=== PATIENT | male | born 1955 | race Caucasian/White ===

== ENCOUNTER 2016-12-19 07:01 | Outpatient (CLI) | payer OTHER ==
[~2016-12-19 07:01] MED LIST: ASPI-524 PO; BENA10TA PO
[2016-12-19 09:44] LABS: BASOPHILS % (AUTO) 0.5 % (0.0-2.0); EOSINOPHILS # (AUTO) 0.2 K/uL (0.0-0.4); HEMOGLOBIN 15.4 g/dL (14.0-18.0); LYMPHOCYTES # (AUTO) 1.9 K/uL (1.0-5.5); LYMPHOCYTES % (AUTO) 35.4 % (20.5-51.5); MEAN CORPUSCULAR HEMOGLOBIN 30 pg (27-31); MEAN CORPUSCULAR HGB CONC 33 % (32-36); MEAN CORPUSCULAR VOLUME 92 fL (79.0-98.0); MONOCYTES # (AUTO) 0.5 K/uL (0.0-1.0); MONOCYTES % (AUTO) 9.3 % (1.7-9.3); NEUTROPHILS # (AUTO) 2.8 K/uL (1.8-7.7); NEUTROPHILS % (AUTO) 51.8 % (40.0-70.0); PLATELET COUNT (AUTO) 295 K/uL (130-430); RED BLOOD CELL COUNT(AUTO) 5.13 MIL/uL (4.2-6.2); RED CELL DISTRIBUTION WIDTH 12.1 % (9.0-15.0); WHITE BLOOD COUNT (AUTO) 5.4 K/uL (4.8-10.8)
[2016-12-19 09:59] LABS: ALBUMIN 4.2 g/dL (3.4-4.8); CALCIUM 9.8 mg/dL (8.4-11.0); CREATININE 1.1 mg/dL (0.55-1.30); POTASSIUM 4.6 mmol/L (3.5-5.1); TOTAL BILIRUBIN 0.7 mg/dL (0.0-1.0); TOTAL PROTEIN, SERUM 7.3 g/dL (6.4-8.3); URIC ACID 6.3 mg/dL (2.4-7.0)
[2016-12-19 10:10] LABS: BILIRUBIN,URINE NEGATIVE (NEGATIVE); CLARITY/URINE CLEAR (CLEAR); COLOR,URINE YELLOW (YELLOW); GLUCOSE,URINE NEGATIVE (NEGATIVE); KETONES,URINE NEGATIVE (NEGATIVE); LEUKOCYTE ESTERASE ,URINE NEGATIVE (NEGATIVE); NITRITE, URINE NEGATIVE (NEGATIVE); PROTEIN URINE NEGATIVE (NEGATIVE); UROBILINOGEN,URINE 0.2 (0.2-1.0)
[2016-12-19 10:15] LABS: BLOOD, URINE TRACE (NEGATIVE)
[2016-12-19 10:23] LABS: BACTERIA,URINE None Seen /HPF (None Seen); MUCUS,URINE 1+ /LPF (None Seen); RBC,URINE 0-3 /HPF (0-3); WBC,URINE 0-3 /HPF (0-3)
[2016-12-19 10:35] LABS: THYROID STIMULATING HORMONE 1.22 uIu/mL (0.34-4.82)
[2016-12-23 16:15] LABS: % FREE PSA 20.5 % (.); FREE PSA 0.45 ng/mL; HEMOGLOBIN A1C 5.6 % (4.8-5.6); PROSTATE SPECIFIC AG TOTAL 2.2 ng/mL (0.0-4.0)
== END 2016-12-19 20:15 | disposition home or self-care (01) ==
LOC: SLB 07:01
DX: Z00.01 Encounter for general adult medical examination with abnormal findings (principal); R79.89 Other specified abnormal findings of blood chemistry
CPT/HCPCS: 36415; 80053; 80061; 81000-TC; 82306; 82607; 83036; 83540-TC; 84153; 84443-TC; 84550-TC; 85025

== ENCOUNTER 2017-12-30 07:03 | Outpatient (CLI) | payer OTHER ==
[2017-12-30 07:54] LABS: BASOPHILS # (AUTO) 0.1 K/uL (0.0-0.2); BASOPHILS % (AUTO) 1.8 % (0.0-2.0); EOSINOPHILS # (AUTO) 0.2 K/uL (0.0-0.4); EOSINOPHILS % (AUTO) 3.3 % (0.0-4.0); HEMATOCRIT 45.5 % (36-54); HEMOGLOBIN 15.2 g/dL (14.0-18.0); LYMPHOCYTES # (AUTO) 1.5 K/uL (1.0-5.5); LYMPHOCYTES % (AUTO) 31.8 % (20.5-51.5); MEAN CORPUSCULAR HEMOGLOBIN 31 pg (27-31); MEAN CORPUSCULAR HGB CONC 33 % (32-36); MEAN CORPUSCULAR VOLUME 92 fL (79.0-98.0); MONOCYTES # (AUTO) 0.4 K/uL (0.0-1.0); MONOCYTES % (AUTO) 8.8 % (1.7-9.3); NEUTROPHILS # (AUTO) 2.5 K/uL (1.8-7.7); NEUTROPHILS % (AUTO) 54.3 % (40.0-70.0); PLATELET COUNT (AUTO) 284 K/uL (130-430); RED BLOOD CELL COUNT(AUTO) 4.93 MIL/uL (4.2-6.2); RED CELL DISTRIBUTION WIDTH 12.4 % (9.0-15.0); WHITE BLOOD COUNT (AUTO) 4.7 K/uL (4.8-10.8)
[2017-12-30 08:10] LABS: BILIRUBIN,URINE NEGATIVE (NEGATIVE); BLOOD, URINE 1+ (NEGATIVE); CLARITY/URINE CLEAR (CLEAR); COLOR,URINE YELLOW (YELLOW); GLUCOSE,URINE NEGATIVE (NEGATIVE); KETONES,URINE NEGATIVE (NEGATIVE); LEUKOCYTE ESTERASE ,URINE NEGATIVE (NEGATIVE); NITRITE, URINE NEGATIVE (NEGATIVE); PROTEIN URINE NEGATIVE (NEGATIVE); UROBILINOGEN,URINE 0.2 (0.2-1.0)
[2017-12-30 08:19] LABS: CREATININE 1.06 mg/dL (0.55-1.30); POTASSIUM 4.4 mmol/L (3.5-5.1)
[2017-12-30 08:22] LABS: BACTERIA,URINE FEW /HPF (None Seen); MUCUS,URINE None Seen /LPF (None Seen); RBC,URINE 0-3 /HPF (0-3); WBC,URINE NONE SEEN /HPF (0-3)
[2017-12-30 08:32] LABS: TOTAL IRON BIND. CAPACITY 253 ug/dL (250-450)
[2017-12-30 08:33] LABS: ALBUMIN 4.2 g/dL (3.4-4.8); THYROID STIMULATING HORMONE 1.93 uIu/mL (0.36-3.74); TOTAL BILIRUBIN 0.8 mg/dL (0.0-1.0)
[2017-12-31 08:06] LABS: PROSTATE SPECIFIC AG 2.4 ng/mL (0.0-4.0)
[2017-12-31 10:06] LABS: HEMOGLOBIN A1C 5.7 % (4.8-5.6)
== END 2017-12-30 20:00 | disposition home or self-care (01) ==
LOC: SLB 07:03 → EDSTATUS 01-01 11:15
DX: Z00.01 Encounter for general adult medical examination with abnormal findings (principal); R73.01 Impaired fasting glucose; N52.9 Male erectile dysfunction, unspecified; Z12.5 Encounter for screening for malignant neoplasm of prostate
CPT/HCPCS: 36415; 80053; 80061; 81000-TC; 82306; 82607; 83036; 83519; 83540-TC; 83550-TC; 83735-TC; 84153; 84443-TC; 85025

== ENCOUNTER 2018-06-18 06:55 | Outpatient (CLI) | payer OTHER, MEDICARE ==
[2018-06-18 07:30] LABS: EOSINOPHILS # (AUTO) 0.2 K/uL (0.0-0.4); LYMPHOCYTES # (AUTO) 1.8 K/uL (1.0-5.5); MEAN CORPUSCULAR HEMOGLOBIN 31 pg (27-31); MEAN CORPUSCULAR HGB CONC 33 % (32-36); MEAN CORPUSCULAR VOLUME 92 fL (79.0-98.0); NEUTROPHILS # (AUTO) 2.8 K/uL (1.8-7.7); WHITE BLOOD COUNT (AUTO) 5.3 K/uL (4.8-10.8)
[2018-06-18 07:32] LABS: BILIRUBIN,URINE NEGATIVE (NEGATIVE); BLOOD, URINE 1+ (NEGATIVE); CLARITY/URINE CLEAR (CLEAR); COLOR,URINE YELLOW (YELLOW); GLUCOSE,URINE NEGATIVE (NEGATIVE); KETONES,URINE NEGATIVE (NEGATIVE); LEUKOCYTE ESTERASE ,URINE NEGATIVE (NEGATIVE); NITRITE, URINE NEGATIVE (NEGATIVE); PROTEIN URINE NEGATIVE (NEGATIVE); UROBILINOGEN,URINE 0.2 (0.2-1.0)
[2018-06-18 07:45] LABS: HEMATOCRIT 45.5 % (36-54); HEMOGLOBIN 15.1 g/dL (14.0-18.0); LYMPHOCYTES % (AUTO) 33.6 % (20.5-51.5); NEUTROPHILS % (AUTO) 53.2 % (40.0-70.0); PLATELET COUNT (AUTO) 264 K/uL (130-430); RED BLOOD CELL COUNT(AUTO) 4.95 MIL/uL (4.2-6.2); RED CELL DISTRIBUTION WIDTH 12.3 % (9.0-15.0)
[2018-06-18 07:46] LABS: BASOPHILS % (AUTO) 0.6 % (0.0-2.0); EOSINOPHILS % (AUTO) 3.6 % (0.0-4.0); MONOCYTES # (AUTO) 0.5 K/uL (0.0-1.0)
[2018-06-18 07:52] LABS: ALBUMIN 3.8 g/dL (3.4-4.8); CALCIUM 9.4 mg/dL (8.4-11.0); CREATININE 1.12 mg/dL (0.55-1.30); POTASSIUM 4.6 mmol/L (3.5-5.1); THYROID STIMULATING HORMONE 1.67 uIu/mL (0.34-4.82); TOTAL BILIRUBIN 0.7 mg/dL (0.0-1.0)
[2018-06-18 08:03] LABS: BACTERIA,URINE None Seen /HPF (None Seen); MUCUS,URINE 1+ /LPF (None Seen); RBC,URINE 0-3 /HPF (0-3); WBC,URINE 0-3 /HPF (0-3)
== END 2018-06-18 19:29 | disposition home or self-care (01) ==
LOC: SLB 06:55
DX: Z12.5 Encounter for screening for malignant neoplasm of prostate (principal); E55.9 Vitamin D deficiency, unspecified; N52.9 Male erectile dysfunction, unspecified; N10 Acute pyelonephritis; R53.83 Other fatigue
CPT/HCPCS: 36415; 80053; 80061; 81000; 82306; 82607; 84443; 85025; G0103

== ENCOUNTER 2018-07-07 06:57 | Outpatient (CLI) | payer OTHER, MEDICARE | END 2018-07-07 21:28 | disposition home or self-care (01) | LOC: SLB 06:57 | DX: R73.01 Impaired fasting glucose (principal) | CPT/HCPCS: 36415; 83036 ==

== ENCOUNTER 2019-02-09 06:54 | Outpatient (CLI) | payer OTHER, MEDICARE ==
[2019-02-09 07:32] LABS: BASOPHILS % (AUTO) 0.7 % (0.0-2.0); EOSINOPHILS # (AUTO) 0.2 K/uL (0.0-0.4); EOSINOPHILS % (AUTO) 3.8 % (0.0-4.0); HEMATOCRIT 45.5 % (36-54); HEMOGLOBIN 15.6 g/dL (14.0-18.0); LYMPHOCYTES # (AUTO) 1.9 K/uL (1.0-5.5); LYMPHOCYTES % (AUTO) 35.4 % (20.5-51.5); MEAN CORPUSCULAR HEMOGLOBIN 32 pg (27-31); MEAN CORPUSCULAR HGB CONC 34 % (32-36); MEAN CORPUSCULAR VOLUME 92 fL (79.0-98.0); MONOCYTES # (AUTO) 0.5 K/uL (0.0-1.0); NEUTROPHILS # (AUTO) 2.7 K/uL (1.8-7.7); NEUTROPHILS % (AUTO) 50.1 % (40.0-70.0); PLATELET COUNT (AUTO) 239 K/uL (130-430); RED BLOOD CELL COUNT(AUTO) 4.92 MIL/uL (4.2-6.2); RED CELL DISTRIBUTION WIDTH 13.2 % (9.0-15.0); WHITE BLOOD COUNT (AUTO) 5.3 K/uL (4.8-10.8)
[2019-02-09 07:32] LABS: BILIRUBIN,URINE NEGATIVE (NEGATIVE); BLOOD, URINE 1+ (NEGATIVE); CLARITY/URINE CLEAR (CLEAR); COLOR,URINE YELLOW (YELLOW); GLUCOSE,URINE NEGATIVE (NEGATIVE); KETONES,URINE NEGATIVE (NEGATIVE); LEUKOCYTE ESTERASE ,URINE NEGATIVE (NEGATIVE); NITRITE, URINE NEGATIVE (NEGATIVE); PROTEIN URINE NEGATIVE (NEGATIVE); UROBILINOGEN,URINE 0.2 (0.2-1.0)
[2019-02-09 07:40] LABS: BACTERIA,URINE FEW /HPF (None Seen); MUCUS,URINE None Seen /LPF (None Seen); RBC,URINE 0-3 /HPF (0-3); WBC,URINE 0-3 /HPF (0-3)
[2019-02-09 07:59] LABS: ALBUMIN 3.8 g/dL (3.4-4.8); CREATININE 1.12 mg/dL (0.55-1.30); POTASSIUM 4.7 mmol/L (3.5-5.1); TOTAL BILIRUBIN 0.6 mg/dL (0.0-1.0)
[2019-02-09 08:30] LABS: THYROID STIMULATING HORMONE 2.27 uIu/mL (0.36-3.74)
[2019-02-10 08:09] LABS: FREE PSA 0.38 ng/mL; PROSTATE SPECIFIC AG TOTAL 1.9 ng/mL (0.0-4.0)
== END 2019-02-09 21:13 | disposition home or self-care (01) ==
LOC: SLB 06:54
DX: I10 Essential (primary) hypertension (principal); Z79.899 Other long term (current) drug therapy
CPT/HCPCS: 36415; 80053; 80061; 81000-TC; 82306; 82607; 84153; 84443-TC; 85025; 87086

== ENCOUNTER 2019-12-21 11:34 | Outpatient (CLI) | payer OTHER, MEDICARE | END 2019-12-21 19:18 | disposition home or self-care (01) | LOC: SUS 11:34 | DX: N20.0 Calculus of kidney (principal) | CPT/HCPCS: 76770 ==

== ENCOUNTER 2020-02-17 11:17 | Outpatient (CLI) | payer OTHER, MEDICARE ==
[2020-02-17 12:29] LABS: CALCIUM 9.9 mg/dL (8.4-11.0); CREATININE 0.94 mg/dL (0.55-1.30); POTASSIUM 4.7 mmol/L (3.5-5.1)
== END 2020-02-17 20:23 | disposition home or self-care (01) ==
LOC: SLB 11:17
DX: M25.561 Pain in right knee (principal); E83.52 Hypercalcemia
CPT/HCPCS: 36415; 73564; 80048

== ENCOUNTER 2020-07-20 11:22 | Outpatient (CLI) | payer OTHER, MEDICARE ==
[2020-07-20 11:52] LABS: BILIRUBIN,URINE NEGATIVE (NEGATIVE); BLOOD, URINE NEGATIVE (NEGATIVE); CLARITY/URINE CLEAR (CLEAR); COLOR,URINE YELLOW (YELLOW); GLUCOSE,URINE NEGATIVE (NEGATIVE); KETONES,URINE NEGATIVE (NEGATIVE); LEUKOCYTE ESTERASE ,URINE NEGATIVE (NEGATIVE); NITRITE, URINE NEGATIVE (NEGATIVE); PH,URINE 5.5 (5.0-8.0); PROTEIN URINE NEGATIVE (NEGATIVE); UROBILINOGEN,URINE 0.2 (0.2-1.0)
== END 2020-07-20 20:49 | disposition home or self-care (01) ==
LOC: SLB 11:22
PROVIDERS: ATTEND Physician Assistant Surgical
DX: N20.0 Calculus of kidney (principal); D17.71 Benign lipomatous neoplasm of kidney; I70.0 Atherosclerosis of aorta; R91.1 Solitary pulmonary nodule; K82.8 Other specified diseases of gallbladder; N40.0 Benign prostatic hyperplasia without lower urinary tract symptoms; N28.9 Disorder of kidney and ureter, unspecified
CPT/HCPCS: 76376; 76770; 81003

== ENCOUNTER 2020-07-21 12:08 | Outpatient (CLI) | payer OTHER, MEDICARE | END 2020-07-21 20:19 | disposition home or self-care (01) | LOC: SCT 12:08 | DX: R91.1 Solitary pulmonary nodule (principal) | CPT/HCPCS: 71250-TC; 76376 ==

== ENCOUNTER 2021-01-04 11:39 | Outpatient (CLI) | payer OTHER, MEDICARE | END 2021-01-04 19:49 | disposition home or self-care (01) | LOC: SUS 11:39 | DX: D17.9 Benign lipomatous neoplasm, unspecified (principal) | CPT/HCPCS: 76770 ==

== ENCOUNTER 2021-06-18 11:03 | Outpatient (CLI) | payer OTHER, MEDICARE | END 2021-06-18 20:43 | disposition home or self-care (01) | LOC: SCT 11:03 | PROVIDERS: ATTEND Internal Medicine Pulmonary Disease | DX: R91.1 Solitary pulmonary nodule (principal); I77.810 Thoracic aortic ectasia | CPT/HCPCS: 71250-TC; 76376 ==

== ENCOUNTER 2021-12-17 12:30 | Outpatient (CLI) | payer OTHER, MEDICARE | END 2021-12-17 19:28 | disposition home or self-care (01) | LOC: SUS 12:30 | PROVIDERS: ATTEND Urology | DX: N20.0 Calculus of kidney (principal); D17.9 Benign lipomatous neoplasm, unspecified | CPT/HCPCS: 76770 ==

== ENCOUNTER 2023-06-24 08:10 | Outpatient (CLI) | payer OTHER, MEDICARE | END 2023-06-24 18:44 | disposition home or self-care (01) | LOC: SCT 08:10 | PROVIDERS: ATTEND Internal Medicine Pulmonary Disease | DX: R91.1 Solitary pulmonary nodule (principal); I25.10 Atherosclerotic heart disease of native coronary artery without angina pectoris; N20.0 Calculus of kidney | CPT/HCPCS: 71250-TC; 76376 ==